=== PATIENT | female | born 1990 | race Caucasian/White ===

== ENCOUNTER 2016-11-15 17:10 | Emergency (ER) | payer MEDICAID, OTHER ==
[~2016-11-15] VITALS: Ht 162.6 cm; Wt 68.0 kg
[~2016-11-15 17:10] MED LIST: ACET325 PO; POTA-243 PO; ZOFR4TAB3 SL
[2016-11-15 17:16] VITALS: BP 129/86; PULSE 100; RESP 17; TEMP 99.1; O2SAT 97
--- NOTE | 2016-11-15 18:34 | PD ---
HPI Chief Complaint: Cold / Flu Symptoms Time Seen by Provider: 18:27 Travel History International Travel<30 days: No Contact w/Intl Traveler<30days: No Traveled to known affect area: No History of Present Illness HPI 26-year-old female with history of no significant past medical issues, presents to the ER today with coughing, sore throat, body aches, headaches, fevers of 102 last night, coughing up phlegm. 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 She denies any chest pains, abdominal pains, vomiting, diarrhea, or other symptoms. Modifying Factors: None Associated Signs & Symptoms: Coughing, sore throat, body aches, headaches, fevers Risk Factors: Sick contact PFSH Past Medical History Cancer: No Diabetes: No Diminished Hearing: No Psychiatric: No Seizures: No Thyroid Disease: No Ulcer: No Tetanus Vaccination: Unknown Influenza Vaccination: No ?: Unknown LMP: 11/02/16 : 3 Para: 3 Tubal Ligation: Yes Past Surgical History Section: Yes (X3) Oral Surgery: Yes (WISDOM TOOTH) Other Surgery: No Social History Alcohol Use: No Tobacco Use: No Substance Use: No Allergies-Medications (Allergen,Severity, Reaction): Coded Allergies: No Known Allergies (Verified , 11/15/16) Reported Meds & Prescriptions Reported Meds & Active Scripts Active Zofran ODT (Ondansetron HCl) 4 Mg Tab 4 Mg SL Q6H PRN FOR NAUSEA/VOMITING K-Dur (Potassium Chloride) 10 Meq Tabcr 10 Meq PO DAILY Reported Tylenol (Acetaminophen) 325 Mg Tab 650 Mg PO Q4H Review of Systems Except as stated in HPI: all other systems reviewed are Neg Physical Exam Narrative GENERAL: Young white female patient in no acute distress. She is well-developed , awake, alert, oriented 3. SKIN: Warm and dry. HEAD: Atraumatic. Normocephalic. EYES: Pupils equal and round. No scleral icterus. No injection or drainage. ENT: No nasal bleeding or discharge. Mucous membranes pink and moist. Mild pharyngeal erythema with no signs of exudates. NECK: Trachea midline. No JVD. CARDIOVASCULAR: Regular rate and rhythm. No murmur appreciated. RESPIRATORY: No accessory muscle use. Clear to auscultation. Breath sounds equal bilaterally. GASTROINTESTINAL: Abdomen soft, non-tender, nondistended. Hepatic and splenic margins not palpable. MUSCULOSKELETAL: No obvious deformities. No clubbing. No cyanosis. No edema. NEUROLOGICAL: Awake and alert. No obvious cranial nerve deficits. Motor grossly within normal limits. Normal speech. PSYCHIATRIC: Appropriate mood and affect; insight and judgment normal. Data Data Last Documented VS Vital Signs Date Time Temp Pulse Resp B/P Pulse Ox O2 Delivery O2 Flow Rate FiO2 11/15/16 18:10 20 11/15/16 17:16 99.1 100 129/86 97 Orders Influenzae A/B Antigen (11/15/16 18:27) Chest, Single Ap (11/15/16 18:27) Group A Rapid Strep Screen (11/15/16 18:27) MDM Medical Decision Making Medical Screen Exam Complete: Yes Emergency Medical Condition: Yes Medical Record Reviewed: Yes Differential Diagnosis Cough, cold symptoms, body aches, feversURI versus viral syndrome versus influenza versus pneumonia Narrative Course Influenza test and chest x-ray was ordered for the patient. Physician Communication Physician Communication Case is signed out to Dr. Gonzalez at 7 PM awaiting lab work and x-ray. Diagnosis Primary Impression: Viral syndrome Condition: Stable Billie Frazier MD Nov 15, 2016 18:34
[2016-11-15] MEDS ORDERED: OSEL75 PO (19:21)
--- NOTE | 2016-11-15 19:22 | PD ---
Data Data Last Documented VS Vital Signs Date Time Temp Pulse Resp B/P Pulse Ox O2 Delivery O2 Flow Rate FiO2 11/15/16 19:30 100.5 11/15/16 18:10 20 11/15/16 17:16 100 129/86 97 Orders Influenzae A/B Antigen (11/15/16 18:27) Chest, Single Ap (11/15/16 18:27) Group A Rapid Strep Screen (11/15/16 18:27) Strep Culture (Group A) (11/15/16 18:40) Oseltamivir (Tamiflu) (11/15/16 19:30) Acetaminophen (Tylenol) (11/15/16 19:30) MDM Medical Record Reviewed: Yes Supervised Visit with DANIEL: No Narrative Course Please refer to the outgoing provider documentation. The patient arrives with symptomatology suggestive of influenza and has a positive flu assay. Tamiflu prescribed. Rest hydration and Tylenol as needed. Return precautions discussed. Diagnosis Primary Impression: Viral syndrome Additional Impression: Influenza Referrals: DR BERGERON 2 days Additional Instruction: You have a choice when it comes to health care, and we are glad that you chose [facility]. Hopefully, we have met your expectations on today's visit. You are welcome to return to [facility] at any time, as we are committed to meeting the health care needs of our community. Med/Other Pt SpecificInfo: Prescription(s) given Scripts Oseltamivir (Tamiflu)75 Mg Cap75 Mg PO BID 7 Days Ref 0 Prov:Norberto Gonzalez MD 11/15/16 Disposition: 01 DISCHARGE HOME Condition: Stable Norberto Gonzalez MD Nov 15, 2016 19:22
[2016-11-15 19:30] VITALS: TEMP 100.5
[2016-11-15] MEDS ORDERED: ACETAMINOPHEN 325 MG TAB PO ONE (19:30)
[2016-11-15] MEDS ORDERED: OSELTAMIVIR PHOSPHATE 75 MG CAP PO ONE (19:30)
--- NOTE | 2016-11-15 19:38 | RADHPO ---
EXAM DATE/TIME: 11/15/2016 19:18 [facility] COMPARISON: No previous studies available for comparison. INDICATIONS : Cough and congestion. MEDICAL HISTORY : None. SURGICAL HISTORY : section. ENCOUNTER: Initial ACUITY: 2 days PAIN SCORE: 5/10 LOCATION: Bilateral chest FINDINGS: A single view of the chest demonstrates the lungs to be symmetrically aerated without evidence of mas s, infiltrate or effusion. The cardiomediastinal contours are unremarkable. Osseous structures are intact. CONCLUSION: No evidence of acute cardiopulmonary disease. Red Bender MD on November 15, 2016 at 19:36 Board Certified Radiologist. This report was verified electronically.
== END 2016-11-15 20:06 | disposition home or self-care (01) ==
LOC: PHEFT 17:10
DX: J09.X2 Influenza due to identified novel influenza A virus with other respiratory manifestations (principal); B34.9 Viral infection, unspecified
CPT/HCPCS: 71010; 87081; 87804; 87880; 99283